=== PATIENT | female | born 1980 | race Caucasian/White ===

== ENCOUNTER → 2017-09-04 | Outpatient (CLI) | payer BC ==
--- NOTE | 2017-09-04 14:12 | RADIOLOGY REPORT (SQ) ---
EXAM DESCRIPTION: CTA NECK COMPLETED DATE/TIME: 09/04/2017 12:34 pm REASON FOR STUDY: LOCALIZED SWELLING, MASS AND LUMP, NECK R22.1 LOCALIZED SWELLING, MASS AND LUMP, NECK COMPARISON: None. TECHNIQUE: Axial dynamic scanning technique with dynamic contrast enhancement through the extra-target aircraft controller nial carotid and vertebral arteries. Multiplanar reconstruction. 3-D MIPS and Volume-rendered imag es acquired at the workstation and saved to PACS. Images are reviewed in soft tissue, bone, lung w indows. All CT scanners at this facility use dose modulation, iterative reconstruction, and/or weight based d osing when appropriate to reduce radiation dose to as low as reasonably achievable (ALARA). [facility]: Dose Right [facility]: CareDose [facility]: Dose Right [facility]: Teradose 4D [facility]: [employer] CONTRAST TYPE AND DOSE: contrast/concentration: Isovue 370.00 mg/ml; Total Contrast Delivered: 70.0 ml; Total Saline Delivered: 75.0 ml RENAL FUNCTION: None required. The patient is less than 50 years old. LIMITATIONS: None. FINDINGS: A 3.4 cm ap x 2.1 cm transverse by 4 cm craniocaudad well-circumscribed avidly enhancing s oft tissue mass is present in the right neck, between the right common carotid artery and right thyro id cartilage of the larynx. Patient is post thyroidectomy. This may represent a regenerated thyroid nodule. cervical lymph node with thyroid tissue from metastatic thyroid cancer is also possible. No other neck soft tissue masses. No cervical adenopathy. Clips post thyroidectomy. Inferior brain parenchyma in the field of view, orbits, paranasal sinuses, pharyngeal soft tissues, l arynx unremarkable. Bony structures are unremarkable. Lung apices are clear. AORTIC ARCH: Normal three-vessel origin. Bilateral subclavian arteries are patent. No dissection. RIGHT CAROTIDS: Patent common, internal and external carotid arteries without suggestion of significa nt stenosis or irregular plaque. No dissection. RIGHT VERTEBRAL: Patent. No dissection. LEFT CAROTIDS: Patent common, internal and external carotid arteries without suggestion of significan t stenosis or irregular plaque. No dissection. LEFT VERTEBRAL: Patent. No dissection. IMPRESSION: 3.4 x 2.1 x 4 cm mass right neck, between the right common carotid artery and right thyr oid cartilage. This could either represent a regenerating thyroid nodule post thyroidectomy, or coul d represent a lymph node with thyroid malignancy. COMMENT: Quality ID #[id number]: Measurements of distal internal carotid diameter were used as the denomina tor for stenosis measurement. TECHNICAL DOCUMENTATION: JOB ID: [id number] Quality ID # [id number]: Final reports with documentation of one or more dose reduction techniques (e.g., Au tomated exposure control, adjustment of the mA and/or kV according to patient size, use of iterative reconstruction technique) 2010 [employer]- All Rights Reserved Reading location - IP/workstation name: [facility]
== END ==
LOC: RAD 11:56
PROVIDERS: ATTEND Surgery
DX: R22.1 Localized swelling, mass and lump, neck (principal)
CPT/HCPCS: 70498

== ENCOUNTER → 2017-09-12 | Outpatient (CLI) | payer BC ==
[2017-09-12 14:35] LABS: ANION GAP 12 (5-19); BLOOD UREA NITROGEN 15 mg/dL (7-20); CALCIUM 8.8 mg/dL (8.4-10.2); CARBON DIOXIDE 28 mmol/L (22-30); CHLORIDE 102 mmol/L (98-107); GLUCOSE 88 mg/dL (75-110); POTASSIUM 5.7 mmol/L (3.6-5.0); SODIUM 142.4 mmol/L (137-145)
[2017-09-12 14:52] LABS: FREE T4 (FREE THYROXINE) 1.27 ng/dL (0.78-2.19)
[2017-09-12 15:06] LABS: THYROID STIMULATING HORMONE 7.4 uIU/mL (0.47-4.68)
== END ==
LOC: LAB 13:18
PROVIDERS: ATTEND Otolaryngology
DX: R22.1 Localized swelling, mass and lump, neck (principal)
CPT/HCPCS: 36415; 80048; 83970; 84439; 84443